=== PATIENT | male | born 1960 | race Caucasian/White ===

== ENCOUNTER → 2018-07-24 10:26 | Outpatient (CLI) | payer BC, SELFPAY ==
[2018-07-24 11:34] LABS: Microalbumin,Random Urine 60.4 mg/L (NO RANGE EST.); Microalbumin:Creatinine Ratio 36.2 mg/g CRE (<30 mg/g CRE)
[2018-07-24 12:09] LABS: ALB/GLOB Ratio 0.9 RATIO (0.9-2.4); AST(SGOT) 27 U/L (15-37); Alanine Aminotransfer ALT/SGPT 39 U/L (16-61); Albumin, Serum 3.7 g/dL (3.2-5.0); Alkaline Phosphatase 69 U/L (45-117); Anion Gap 6 (5-15); BUN 17 mg/dL (7-18); BUN/Creat Ratio 19.1 RATIO (10-20); Calcium,Total 8.8 mg/dL (8.5-10.1); Chloride 105 mmol/L (98-107); Cholesterol 120 mg/dL (200); Creatinine, Serum 0.89 mg/dL (0.70-1.30); EST Glomerular Filtration Rate 93 mL/min (>60); Est Glom Filt Rate - Afr Amer 113 mL/min (>60); Globulin 4.3 g/dL (2.2-4.2); Glucose 99 mg/dL (74-106); High Density Lipoprotein 30 mg/dL; PSA,Total - Annual Screen 0.47 ng/mL (0.00-4.00); Potassium 3.8 mmol/L (3.5-5.1); Sodium Level 140 mmol/L (136-145); Thyroid Stim Hormone (TSH) 2.39 uIU/mL (0.358-3.74); Triglycerides 124 mg/dL; Very Low Density Lipoprotein 25 mg/dL (5-40)
== END ==
PROVIDERS: Family Provider Nurse Practitioner Primary Care; PCP Nurse Practitioner Primary Care; Referring Provider Nurse Practitioner; Visit Provider Nurse Practitioner
DX: E11.9 Type 2 diabetes mellitus without complications (principal)
CPT/HCPCS: 36415; 80053; 80061; 82043; 82570; 82652; 83036; 84153; 84443; G0103

== ENCOUNTER → 2018-09-11 09:16 | Outpatient (CLI) | payer BC, SELFPAY ==
[2018-08-30 08:22] VITALS: BMI 48.4
[2018-09-11 09:43] LABS: Bacteria 0 SEEN /hpf (None Seen); Mucous, Urine 0 SEEN /hpf (<or=2+); Red Blood Cells-Urine 0 SEEN /hpf (0-5); Squamous Epithelial Cells - UA 0 SEEN /hpf (0-5); White Blood Cells 0 SEEN /hpf (0-5)
[2018-09-11 10:58] LABS: Color, Urine Yellow (Yellow); Glucose, Dipstick 1000 mg/dl (Normal); Ketone-Dipstick Negative (Negative); Leukocyte Esterase-Dipstick Negative /ul (Negative); Nitrite-Dipstick Negative (Negative); Occult Blood-Urine Negative /ul (Negative); Protein-Dipstick 15 mg/dl (Negative); Specific Gravity, Urine 1.015 (1.002-1.030); Urine Bilirubin Dipstick Negative (Negative); Urine Clarity Sl. Cloudy (Clear); Urine Urobilinogen Normal (Normal)
[2018-09-11 11:11] LABS: ALB/GLOB Ratio 0.9 RATIO (0.9-2.4); AST(SGOT) 33 U/L (15-37); Alanine Aminotransfer ALT/SGPT 44 U/L (16-61); Albumin, Serum 3.7 g/dL (3.2-5.0); Alkaline Phosphatase 70 U/L (45-117); Anion Gap 10 (5-15); BUN 14 mg/dL (7-18); Calcium,Total 8.9 mg/dL (8.5-10.1); Chloride 104 mmol/L (98-107); Creatinine, Serum 0.87 mg/dL (0.70-1.30); EST Glomerular Filtration Rate 95 mL/min (>60); Est Glom Filt Rate - Afr Amer 115 mL/min (>60); Globulin 4.3 g/dL (2.2-4.2); Glucose 166 mg/dL (74-106); Potassium 3.6 mmol/L (3.5-5.1); Sodium Level 141 mmol/L (136-145)
[2018-09-11 11:16] LABS: Microalbumin,Random Urine 20.4 mg/L (NO RANGE EST.); Microalbumin:Creatinine Ratio 20.8 mg/g CRE (<30 mg/g CRE)
[2018-09-11 11:19] LABS: Hemoglobin A1c 6.7 % (4.2-6.3)
--- OUTSIDE RECORDS SUMMARY | 2018-11-05 19:17 | XMS RPT_ITS ---
:1960 Author Organization OHIP Care Team Providers Name Role Phone BHARGAV ANNE MD Attending Unavailable BHARGAV ANNE MD Primary Care Unavailable Marilee Groves UTILIZATION MANAGEMENT RN-C Attending Unavailable Marilee Groves UTILIZATION MANAGEMENT RN-C Attending Unavailable Marilee Groves UTILIZATION MANAGEMENT RN-Wendi Referring Unavailable Karen Silveira UTILIZATION MANAGEMENT RN-C Primary Care Unavailable Marilee Groves UTILIZATION MANAGEMENT RN-Wendi Attending Unavailable Marilee Groves UTILIZATION MANAGEMENT RN-Wendi Attending Unavailable Marilee Groves UTILIZATION MANAGEMENT RN-Wendi Referring Unavailable Karen Silveira UTILIZATION MANAGEMENT RN-C Primary Care Unavailable PROBLEMS PROBLEMS DATE TYPE CONDITION / CODE ATTENDING STATUS SOURCE 09/11/2018 Unknown E11.9 - Type 2 Marilee Groves Active [facility] diabetes mellitus UTILIZATION MANAGEMENT RN-C [facility] complications / Repository E11.9(ICD-10) 10/27/2017 Admitting Encounter for OMID GUTIERREZ, Active [facility] Diagnosis screening for [facility] malignant neoplasm Repository of prostate / Z12.5(ICD-10) 10/27/2017 Admitting Type 2 diabetes OMID GUTIERREZ, Active [facility] Diagnosis mellitus without [facility] complications / Repository E11.9(ICD-10) PROCEDURES PROCEDURES No Procedure Records FoundRESULTS RESULTS URINALYSIS, COMPLETE Collected: 09/11/2018 Status: F Source: [place] 9:43 AM [facility] REPOSITORY Order Comment: How was Urine Obtained? MED ASST TO SPECIFY TYPE CODE TESTS RESULT OUT OF RANGE REFERENCE UNITS LAB L400.3000 Yellow COLOR Normal Yellow LAB L400.3050 Clear Normal CLARITY Sl. Cloudy LAB L400.3200 Normal mg/dl High GLUCOSE, UR 1000 LAB L400.3300 Negative mg/dL Normal BILIRUBIN URINE Negative LAB L400.3400 Negative mg/dl Normal KETONE UR Negative LAB L400.3465 1.002-1.030 Normal SP.GR. DIPSTX 1.015 LAB L400.3550 5.0 - 8.0 pH UR Normal 6.0 LAB L400.3600 Negative mg/dl High PROT 15 DIPSTX LAB L400.3700 Normal mg/dl Normal UROBILI Normal LAB L400.3750 Negative Normal NITRITE UR Negative LAB L400.3780 Negative /ul Normal OCCULT BLOOD-UR Negative LAB L400.3800 Negative /ul LEUK Normal ESTERASE Negative LAB L400.4050 0-5 /hpf WBC 0 Normal SEEN LAB L400.4100 0-5 /hpf 0 Normal RBC-UA SEEN LAB L400.4150 0-5 /hpf SQUAM 0 Normal EPI SEEN LAB L400.4300 None Seen /hpf 0 Normal BACTERIA SEEN LAB L400.4350 <or=2+ /hpf 0 Normal MUCUS, URINE SEEN Performed By: #### L400.0001 #### [facility] [place], [address] COMPREHENSIVE METABOLIC Collected: 09/11/2018 Status: F Source: [place] DIAZ 9:43 [facility] REPOSITORY TYPE CODE TESTS RESULT OUT OF RANGE REFERENCE UNITS LAB L501.0100 74-106 mg/dL High GLU 166 Result Comment: Fasting Glucose result greater than or equal to 126 mg/dL suggests DIABETES MELLITUS per A.D.A. criteria. Please note revised GLUCOSE reference range effective 2017. LAB L501.1000 7-18 mg/dL Normal BUN 14 LAB L501.1100 0.70-1.30 mg/dL Normal CREAT,SERUM 0.87 Result Comment: The validity of the calculated GFR AND GFRAA in patients over 70 years has not been determined. Clinical correlation is essential. LAB L501.1110 >60 mL/min Normal EST GFR 95 Result Comment: Non- GFR Calc LAB L501.1115 >60 mL/min Normal EST GFR - AA 115 Result Comment: GFR Calc LAB L501.1300 10-20 RATIO Normal BUN/CRE 16.0 LAB L501.1500 6.4-8.2 g/dL T Normal PROT 8.0 LAB L501.1800 3.2-5.0 g/dL Normal ALB 3.7 LAB L501.1950 2.2-4.2 g/dL High GLOB 4.3 LAB L501.2000 0.9-2.4 RATIO Normal A/G 0.9 LAB L501.2200 8.5-10.1 mg/dL CA Normal 8.9 LAB L501.4100 15-37 U/L Normal AST 33 LAB L501.4305 45-117 U/L Normal ALK P 70 LAB L501.4405 16-61 U/L Normal ALT 44 LAB L501.4600 0.20-1.00 mg/dL T Normal BILI 0.40 LAB L501.5300 136-145 mmol/L NA Normal 141 LAB L501.5600 3.5-5.1 mmol/L K Normal 3.6 LAB L501.5900 98-107 mmol/L CL Normal 104 LAB L501.6100 21.0-32.0 mmol/L Normal CO2 27.0 LAB L501.6200 5-15 Normal GAP 10 Performed By: #### L500.4050 #### [facility] [address] [place], [place], [id number] MICROALB:CREAT Collected: 09/11/2018 Status: F Source: [place]TE RATIO,RANDOM UR 9:43 AM [facility] REPOSITORY TYPE CODE TESTS RESULT OUT OF RANGE REFERENCE UNITS LAB L501.1200 NO RANGE EST. mg/dL Normal UR CREAT 98.20 LAB L502.0500 NO RANGE EST. mg/L Normal 20.4 MICROALBUMIN ,UR LAB L502.0600 <30 mg/g CRE mg/g CRE Normal 20.8 MALB:CREAT Performed By: #### L502.0250 #### [facility] [address] [place], [address] HEMOGLOBIN A1C Collected: 09/11/2018 Status: F Source: [place] 9:43 AM [facility] REPOSITORY TYPE CODE TESTS RESULT OUT OF RANGE REFERENCE UNITS LAB L501.9985 4.2-6.3 % High HGB A1C 6.7 Performed By: #### L501.9985 #### [facility] [address] [place], [address] ENDOCRINOLOGY VISIT Observed: 08/31/2018 Status: F Source: [place] REPORT 7:48 AM [facility] REPOSITORY [facility] [address] [place], [place] [address] OFFICE VISIT Date of Service: 08/30/18 MR#: [id number] Acct: [id number] Name: MARY SHI Rep #: [id number] : 1960 Provider: Marilee Groves NP Age/Sex: 58/M [place] [facility] [place]: Signed HPI History of present illness Mary Shi is a 58 year old male who presents for consult of diabetes type 2. Diagnosed 2005. Accompanied by his . States he currently has an A1c 6.2 Currently on farxiga trulicity nad metformin. No side effects. Pt denies difficulty with injections or self monitoring of BG. Denies any signs of infection or irritation at site of injections. Reports taking medication as directed At time of visit: -Pt denies symptoms of hypertensive emergency (CP,SOB,MCCRACKEN, or blurred vision) and hypotension(dizziness or lightheadedness) -Pt denies symptoms of hypoglycemia ( sweaty, confusion, anxiety, tremor, hunger, palpitations) and hyperglycemia ( polydipsia, polyuria) -Pt denies potential medication adverse effect. Hypoglycemia Aware of hypoglycemia: When awake Able to self treat low BG: Yes Frequent low Blood sugar: No Has supply of glucagon: Yes Diet 3 meals Occ snacks No carb counting SMBG 1-2 times daily BG 100-140 Exercise No routine exercise Limited due to lymphedema Exam Const General: comfortable, well groomed Nutritional Appearance: overweight Orientation: oriented x3 HENMT Head: normal to inspection, atraumatic Ears: hearing grossly normal bilaterally Nose: external nose normal Face and sinus: normal facial exam Mouth: oral mucosae normal, moist mucous membranes Teeth and gingiva: dentition normal Eyes General: appearance normal, both eyes and all related structures Eyelids: eyelids normal Conjunctivae: conjunctivae normal Sclera: sclerae normal Neck Neck: normal visual inspection, full ROM Neck mass: No Resp Effort AND Inspection: normal respiratory effort, able to speak in complete sentences, symmetric chest movement Auscultation: Bilateral: Clear to Auscultation Cardio Rate: regular rate Rhythm: regular rhythm Heart Sounds: S2 normal, S1 normal, no murmurs GI Inspection: normal to inspection, obesity Auscultation: normal bowel sounds Skin General: no rashes or lesions noted Wounds: no wounds Diabetic Foot Pulses: L dorsalis pedis pulse: normal, R dorsalis pedis pulse: normal Monofilament test: Left foot: normal, Right foot: normal Neuro General: oriented x3, gait normal, CN's II-XI intact bilaterally Extrem General: normal capillary refill, full ROM, normal to inspection, edema Psych Appearance: grossly normal, well kempt Mental Status: mental status grossly normal Mood: congruent mood Affect: normal affect Speech and Movement: speech and movement normal Attitude: cooperative Thought Process: normal Thought Content: normal Judgment: judgment good Type: type 2 Weight and fatigue symptoms: Reports weight gain Cardiopulmonary symptoms: Denies chest pain at rest or dizziness GI symptoms: Denies diarrhea, nausea/dyspepsia, vomiting or increased hunger Other symptoms: Denies change in vision or depression Pertinent visit history: Denies recent visit to ER, recent hospital admission or recent 911 calls Self monitoring: Yes Percentage of fasting blood glucose within goal: most of the time Dietary compliance: Diabetes: good Diabetes education in past year: Yes Glucose testing: demonstrates correct use of meter Sick day education - understands ketone testing: Yes Physical activity: regular Intake Vital Signs11/19/18 Height 5 ft 7 in 08/30/18 Weight: 309 lb 08/30/18 Body Mass Index (BMI) 48.4 08/30/18 Blood Pressure 144/78 H Intake Visit Reasons: 3 MO FU DIABETES MELLITUS TYPE 2 Home And Family Living Professor Required: No Accompanied by: Self Is patient in pain?: No Allergies seasonal Allergy (Mild, Uncoded 06/03/18 08:29) runny nose Medications aspirin 325 mg tablet 325 mg PO DAILY 06/03/18 [History Confirmed 08/30/18] diltiazem CD 120 mg capsule,extended release 24 hr 120 mg PO DAILY 06/03/18 [History Confirmed 08/30/18] dulaglutide 0.75 mg/0.5 mL subcutaneous pen injector 0.75 mg SC QWEEK #6 ml 06/03/18 [Rx Confirmed 08/30/18] empagliflozin 25 mg tablet 25 mg PO DAILY #90 tab 06/03/18 [Rx Confirmed 08/30/18] losartan 50 mg-hydrochlorothiazide 12.5 mg tablet 1 tab PO DAILY 06/03/18 [History Confirmed 08/30/18] metformin ER 750 mg tablet,extended release 24 hr See Rx Instructions PO .COMPLEX #270 tab 06/03/18 [Rx Confirmed 08/30/18] montelukast 10 mg tablet 10 mg PO QPM 06/03/18 [History Confirmed 08/30/18] dapagliflozin 10 mg tablet 10 mg PO DAILY #90 tab 06/10/18 [Rx Confirmed 08/30/18] PFSH Medical History Type 2 diabetes mellitus without complications (Acute) Family History Other Diabetes Heart disease Hypertension Social History Smoking Status: Never smoker ROS Const Constitutional: No chills, fever(s) or night sweats Eyes Eyes: No change in vision ENT ENT: No ear pain, ear discharge, nasal congestion or nosebleed/epistaxis Resp Respiratory: No cough or shortness of breath Cardio Cardiology: No chest pain at rest, chest pain with exertion or generalized swelling Gastro GI: No diarrhea, nausea/dyspepsia or vomiting Genitourinary Male: No difficulty urinating, urinary urgency or painful urination Musc Musculoskeletal: No joint pain, back pain, muscle cramps, muscle weakness, numbness or tingling Skin Skin: No rash or lesions Neuro Neurology: No dizziness, numbness or tingling Psych Psychiatric: No anxiety, No depression Endo Endocrine: No increased thirst/drinking or increased hunger Aller/Imm Allergy/Immunologic: Positive for seasonal allergy symptoms Emory/Lymp Hematologic/Lymphatic: No easy bleeding or easy bruising Assessment AND Plan Problems 1. Controlled type 2 diabetes mellitus without complication, without long-term current use of insulin E11.9 2. Essential hypertension I10 Plan HTN: Has PCP appointment next wek. As he continues to report issues with lymphedema, I suggest he discuss whether or not he could have increase in his HCTZ which would help with BP as well as edema. Discussed importance of lower sodium intake and also leg elevation. Is eating more soups which are higher sodium content. Diabetes: BG remain in good range but did have 36 level microalbumin. Will recheck with U/a to be sure it is a true test result. Need BP to be controlled. Reviewed labs. Chol in range. Vit D in range. On daily ASA On ARB Orders Orders: Plan Detail Additional Comments 1. Please schedule follow up in 3 months. 2. Lab work one week before appointment. 3. Discussed importance of regular exercise and recommend starting or continuing a regular exercise program for good health. 4. The patient was encouraged to lose weight for good health 5. The importance of monitoring blood sugar regularly was reviewed. 6. The importance of monitoring the HBA1c level regularly was reviewed. 7. The importance of prper foot care and regularly checking feet to prevent sores and loss of limbs was reviewed. 8. The importance of keeping BP at or below 130/80 to prevent stroke, heart attacks, kidney failure, blindness was reviewed. Spent approximately 30 minutes with patient with over 50% of time spent in discussion and counseling regarding medication adjustment, symptoms and treatment of hypoglycemia, diet adherence, and checking BG before driving. Coding Level of Care Code Off vis,est,level 4 Diagnoses Controlled type 2 diabetes mellitus without complication, without long-term current use of insulin E11.9 Diabetes mellitus exterminator insulin use: without chcf use Essential hypertension I10 08/31/18 0748 <Electronically signed by Marilee POLANCO> Date Marilee Groves UTILIZATION MANAGEMENT RN-C Bangigner Signature: Date (if applicable) CC: MICROALB:CREAT Collected: 07/24/2018 Status: F Source: EVETTE RATIO,RANDOM UR 10:34 AM [facility] REPOSITORY TYPE CODE TESTS RESULT OUT OF RANGE REFERENCE UNITS LAB L501.1200 NO RANGE EST. mg/dL Normal UR CREAT 167.00 LAB L502.0500 NO RANGE EST. mg/L Normal 60.4 MICROALBUMIN ,UR LAB L502.0600 <30 mg/g CRE mg/g CRE High 36.2 MALB:CREAT Performed By: #### L502.0250 #### [facility] [address] [place], [place], [address] HEMOGLOBIN A1C Collected: 07/24/2018 Status: F Source: [place] 10:34 AM [facility] REPOSITORY TYPE CODE TESTS RESULT OUT OF RANGE REFERENCE UNITS LAB L501.9985 4.2-6.3 % Normal HGB A1C 6.0 Performed By: #### L501.9985, L500.4050, L500.4100, L501.9520, L501.9910 #### [facility] [address] [place], [address] COMPREHENSIVE METABOLIC Collected: 07/24/2018 Status: F Source: [place] PROFIL 10:34 AM [facility] REPOSITORY TYPE CODE TESTS RESULT OUT OF RANGE REFERENCE UNITS LAB L501.0100 74-106 mg/dL Normal GLU 99 Result Comment: Please note revised GLUCOSE reference range effective 2017. LAB L501.1000 7-18 mg/dL Normal BUN 17 LAB L501.1100 0.70-1.30 mg/dL Normal CREAT,SERUM 0.89 Result Comment: The validity of the calculated GFR AND GFRAA in patients over 70 years has not been determined. Clinical correlation is essential. LAB L501.1110 >60 mL/min Normal EST GFR 93 Result Comment: Non- GFR Calc LAB L501.1115 >60 mL/min Normal EST GFR - AA 113 Result Comment: GFR Calc LAB L501.1300 10-20 RATIO Normal BUN/CRE 19.1 LAB L501.1500 6.4-8.2 g/dL T Normal PROT 8.0 LAB L501.1800 3.2-5.0 g/dL Normal ALB 3.7 LAB L501.1950 2.2-4.2 g/dL High GLOB 4.3 LAB L501.2000 0.9-2.4 RATIO Normal A/G 0.9 LAB L501.2200 8.5-10.1 mg/dL CA Normal 8.8 LAB L501.4100 15-37 U/L Normal AST 27 LAB L501.4305 45-117 U/L Normal ALK P 69 LAB L501.4405 16-61 U/L Normal ALT 39 LAB L501.4600 0.20-1.00 mg/dL T Normal BILI 0.40 LAB L501.5300 136-145 mmol/L NA Normal 140 LAB L501.5600 3.5-5.1 mmol/L K Normal 3.8 LAB L501.5900 98-107 mmol/L CL Normal 105 LAB L501.6100 21.0-32.0 mmol/L Normal CO2 29.0 LAB L501.6200 5-15 Normal GAP 6 Performed By: #### L501.9985, L500.4050, L500.4100, L501.9520, L501.9910 #### [facility] [address] [place], [place], [address] LIPID PROFILE Collected: 07/24/2018 Status: F Source: [place] 10:34 AM [facility] REPOSITORY TYPE CODE TESTS RESULT OUT OF RANGE REFERENCE UNITS LAB L501.4900 200 mg/dL Normal CHOL 120 Result Comment: <200 mg/dL Desirable 200-240 mg/dL Borderline >240 mg/dL High Risk LAB L501.5000 mg/dL Normal TRIG 124 Result Comment: The drugs N-Acetylcysteine and Metamizole may falsely depress this assay. Serum Triglycerides Reference Interval Normal <150 mg/dL Borderline high 150 - 199 mg/dL High 200 - 499 mg/dL Very High > or = 500 mg/dL LAB L501.6400 mg/dL Low HDL 30 Result Comment: The drugs N-Acetylcysteine and Metamizole may falsely depress this assay. Reference Range HDL <40 mg/dL Low HDL Cholesterol HDL >or= 60 mg/dL High HDL Cholesterol LAB L501.6500 0-130 mg/dL Normal LDL 65 LAB L501.6600 5-40 mg/dL Normal VLDL 25 Performed By: #### L501.9985, L500.4050, L500.4100, L501.9520, L501.9910 #### [facility] [address] [place], [address] THYROID STIM HORMONE Collected: 07/24/2018 Status: F Source: [place] (TSH) 10:34 AM [facility] REPOSITORY TYPE CODE TESTS RESULT OUT OF RANGE REFERENCE UNITS LAB L501.9520 0.358-3.74 uIU/mL Normal TSH 2.39 Performed By: #### L501.9985, L500.4050, L500.4100, L501.9520, L501.9910 #### [facility] [address] [place], [place], [id number] PSA,TOTAL - ANNUAL Collected: 07/24/2018 Status: F Source: [place] SCREEN 10:34 AM [facility] REPOSITORY TYPE CODE TESTS RESULT OUT OF RANGE REFERENCE UNITS LAB L501.9910 0.00-4.00 ng/mL Normal PSA,TOT 0.47 SCREEN Result Comment: This test was performed using the TPSA assay method for the [employer] chemistry system. Values obtained with different assay methods cannot be used interchangably. When changing PSA assays in the course of monitoring a patient, additional sequential testing should be carried out to confirm baseline values. Performed By: #### L501.9985, L500.4050, L500.4100, L501.9520, L501.9910 #### [facility] [address] [place], [address] VITAMIN D 1,25-DIHYDROXY Collected: 07/24/2018 Status: F Source: [place] 10:34 AM [facility] REPOSITORY TYPE CODE TESTS RESULT OUT OF RANGE REFERENCE UNITS LAB L3300.0960 19.9-79.3 pg/mL Normal VITD 1,25 35.0 [address]111 Result Comment: Performed at: - [facility] [id number] Grain Scooper: Francis Tolentino MD, Phone: [phone] Performed By: #### L3300.0960 #### [facility] (refer to report for specific site) refer to report for address and phone number ENDOCRINOLOGY VISIT Observed: 06/06/2018 Status: F Source: [place] REPORT 1:05 PM [facility] REPOSITORY [facility] [address] [place] [address] OFFICE VISIT Date of Service: 06/03/18 MR#: [id number] Acct: [id number] Name: MARY SHI Rep #: [id number] : 1960 Provider: Marilee Groves NP Age/Sex: 58/M [place] [facility] [place]: Signed HPI History of present illness Mary Shi is a 58 year old male who presents for consult of diabetes type 2. Diagnosed 2005. Accompanied by his . States he currently has an A1c 6.2 Currenlty onJardiance, trulicity nad metformin. No side effects. Pt denies difficulty with injections or self monitoring of BG. Denies any signs of infection or irritation at site of injections. Reports taking medication as directed At time of visit: -Pt denies symptoms of hypertensive emergency (CP,SOB,MCCRACKEN, or blurred vision) and hypotension(dizziness or lightheadedness) -Pt denies symptoms of hypoglycemia ( sweaty, confusion, anxiety, tremor, hunger, palpitations) and hyperglycemia ( polydipsia, polyuria) -Pt denies potential medication adverse effect. Hypoglycemia Aware of hypoglycemia: When awake Able to self treat low BG: Yes Frequent low Blood sugar: No Has supply of glucagon: Yes Diet 3 meals Occ snacks No carb counting SMBG 1-2 times daily BG 100-140 Exercise No routine exercise Limited due to lymphedema Type: type 2 Cardiopulmonary symptoms: Denies chest pain at rest or dizziness GI symptoms: Denies constipation, diarrhea, vomiting or increased hunger Skin and extremity symptoms: Denies tingling/numbness/burning Other symptoms: Denies change in vision Pertinent visit history: Denies recent visit to ER or recent DKA Self monitoring: Yes Percentage of fasting blood glucose within goal: most of the time Dietary compliance: Diabetes: other Diabetes education in past year: No Glucose testing: demonstrates correct use of meter, understands testing schedule Sick day education - understands ketone testing: Yes Physical activity: regular Exam Const General: comfortable, well groomed Nutritional Appearance: overweight Orientation: oriented x3 HENMT Head: normal to inspection, atraumatic Ears: hearing grossly normal bilaterally Nose: external nose normal Face and sinus: normal facial exam Mouth: oral mucosae normal, moist mucous membranes Teeth and gingiva: dentition normal Eyes General: appearance normal, both eyes and all related structures Eyelids: eyelids normal Conjunctivae: conjunctivae normal Sclera: sclerae normal Neck Neck: normal visual inspection, full ROM Neck mass: No Resp Effort AND Inspection: normal respiratory effort, able to speak in complete sentences, symmetric chest movement Auscultation: Bilateral: Clear to Auscultation Cardio Rate: regular rate Rhythm: regular rhythm Heart Sounds: S2 normal, S1 normal, no murmurs GI Inspection: normal to inspection, obesity Auscultation: normal bowel sounds Skin General: no rashes or lesions noted Wounds: no wounds Diabetic Foot Pulses: L dorsalis pedis pulse: normal, R dorsalis pedis pulse: normal Monofilament test: Left foot: normal, Right foot: normal Neuro General: oriented x3, gait normal, CN's II-XI intact bilaterally Extrem General: normal capillary refill, full ROM, normal to inspection, edema Psych Appearance: grossly normal, well kempt Mental Status: mental status grossly normal Mood: congruent mood Affect: normal affect Speech and Movement: speech and movement normal Attitude: cooperative Thought Process: normal Thought Content: normal Judgment: judgment good Intake Vital Signs06/03/18 Height 5 ft 7 in 06/03/18 Weight: 304 lb 06/03/18 Body Mass Index (BMI) 47.6 06/03/18 Blood Pressure 162/81 06/03/18 Blood Pressure Location Rt brachial Intake Visit Reasons: Diabetes Mellitus Type 2 Home And Family Living Professor Required: No Accompanied by: Is patient in pain?: No Allergies seasonal Allergy (Mild, Uncoded 06/03/18 08:29) runny nose Medications aspirin 325 mg tablet 325 mg PO DAILY 06/03/18 [History Confirmed 06/03/18] diltiazem CD 120 mg capsule,extended release 24 hr 120 mg PO DAILY 06/03/18 [History Confirmed 06/03/18] dulaglutide 0.75 mg/0.5 mL subcutaneous pen injector 0.75 mg SC QWEEK #6 ml 06/03/18 [Rx Confirmed 06/03/18] empagliflozin 25 mg tablet 25 mg PO DAILY #90 tab 06/03/18 [Rx Confirmed 06/03/18] losartan 50 mg-hydrochlorothiazide 12.5 mg tablet 1 tab PO DAILY 06/03/18 [History Confirmed 06/03/18] metformin ER 750 mg tablet,extended release 24 hr See Label Instructions PO .COMPLEX #270 tab 06/03/18 [Rx Confirmed 06/03/18] montelukast 10 mg tablet 10 mg PO QPM 06/03/18 [History Confirmed 06/03/18] PFSH Medical History Type 2 diabetes mellitus without complications (Acute) Family History Other Diabetes Heart disease Hypertension ROS Const Constitutional: No chills, body ache, fever(s) or night sweats Eyes Eyes: No change in vision ENT ENT: No ear pain, ear discharge or nosebleed/epistaxis Resp Respiratory: No shortness of breath Cardio Cardiology: No chest pain with exertion, chest pain at rest or generalized swelling Gastro GI: No constipation, diarrhea, vomiting or abdominal pain Genitourinary Male: No urinary incontinence, painful urination or difficulty urinating Skin Skin: No sores, skin ulcer, wounds, lesions or rash Neuro Neurology: No dizziness or fainting Endo Endocrine: No increased hunger, increased thirst/drinking or heat intolerance Aller/Imm Allergy/Immunologic: Positive for seasonal allergy symptoms Emory/Lymp Hematologic/Lymphatic: No easy bruising Assessment AND Plan Problems 1. diabetes type 2 controlled without complication Plan Reviewed pathophysiology of diabetes. Reviewed medication administration, side effects. Reviewed diet, exercise, and sglucose monitoring. Reviewed self anagement of diabetes REviewed skin care. Pateint currently doing very well according to A1c of 6.2 Eye exam up to date without retinopathy BP elevated but patient and admit patient has white coat syndrom On ARB Chol in normal range without statin. Father Heart disease but smoker. Orders Orders: Medications New: Plan Detail Additional Comments 1. Please schedule follow up in 3 months. 2. Lab work one week before appointment. 3. Discussed importance of regular exercise and recommend starting or continuing a regular exercise program for good health. 4. The patient was encouraged to lose weight for good health 5. The importance of monitoring blood sugar regularly was reviewed. 6. The importance of monitoring the HBA1c level regularly was reviewed. 7. The importance of prper foot care and regularly checking feet to prevent sores and loss of limbs was reviewed. 8. The importance of keeping BP at or below 130/80 to prevent stroke, heart attacks, kidney failure, blindness was reviewed. Spent approximately 60 minutes with patient with over 50% of time spent in discussion and counseling regarding medication adjustment, symptoms and treatment of hypoglycemia, diet adherence, and checking BG before driving. Coding Level of Care Code Off vis,new,level 4 Diagnoses diabetes type 2 controlled without complication Depression Screen PHQ-2/9 If score is 2 or greater, continue Source: Developed by Drs. Bhargav Lu, Sumaya Lane, Jorge Bliss and colleagues, with an educational taylor from [employer]. Scoring: Total Score Depression Severity Action 1-4 Minimal depression No action needed 5-9 Mild depression Repeat PHQ-9 at follow up 10-14 Moderate depression Make tx plan,consider counseling, fup, prescription 06/06/18 1305 <Electronically signed by Marilee POLANCO> Date Marilee POLANCO Cosigner Signature: Date (if applicable) CC: HGMP Collected: 10/27/2017 Status: F Source: [facility] 7:49 AM [facility] REPOSITORY TYPE CODE TESTS RESULT OUT OF REFERENCE UNITS RANGE LAB WBC(LOINC) 4.60-10.80 10 3/mcL WBC 8.30 LAB RBCCT(LOINC 4.04-6.13 10 6/mcL ) RBC 5.06 LAB HGB(LOINC) 14.0-18.0 G/dL Hgb 15.1 LAB HCT(LOINC) 42.0-52.0 % Hct 45.1 LAB MCV(LOINC) 80.0-94.0 fL MCV 89.2 LAB MCH(LOINC) 27.0-31.2 pg MCH 29.8 LAB MCHC(LOINC) 31.8-35.4 G/dL MCHC 33.4 LAB RDW(LOINC) 11.5-14.5 % RDW 14.2 LAB PLT(LOINC) 130-400 10 3/mcL Platelet 253 LAB MPV(LOINC) 7.4-10.4 fL MPV 7.9 Performed By: #### PSA, GFR, LIPID, HGMP, CMP #### [facility] [address], [place] [address] LIPID Collected: 10/27/2017 Status: F Source: [facility] 7:49 AM [facility] REPOSITORY TYPE CODE TESTS RESULT OUT OF REFERENCE UNITS RANGE LAB CHOL(LOINC 131-200 mg/dL ) Low Cholesterol 119 Result Comment: Cholesterol Reference Interval: Less than 200 Desirable 200-239 Borderline high risk 240 and above High risk LAB TRIG(LOINC) 40-150 mg/dL Triglycerides 118 Result Comment: Triglyceride Reference Interval: Less than 150 Normal 150-199 Borderline high risk 200-499 High risk 500 or higher Very high risk LAB HD(LOINC) 35-90 mg/dL HDL Low Cholesterol 33 Result Comment: HDL Reference Interval: Less than 40 Low - high risk 60 or above Optimal/lowers risk LAB LDL(LOINC) 0-130 mg/dL LDL Cholesterol 62 Result Comment: LDL is a calculated result and requires a 12-hr fast. LDL Reference Interval: Less than 100 Optimal 100-129 Near or above optimal 130-159 Borderline high risk 160-189 High risk 190 and above Very high risk Performed By: #### PSA, GFR, LIPID, HGMP, CMP #### [facility] [address], [place] [address] .GFR Collected: 10/27/2017 Status: F Source: [place] 7:49 AM [facility] REPOSITORY TYPE CODE TESTS RESULT OUT OF REFERENCE UNITS RANGE LAB GFRAA(LOINC ml/min/1.73 ) sqm GFR 121 [place] Result Comment: GFR Population mean for , Non- Americans Ages 20-29 = 116 mL/min/1.73 sq.m. Ages 30-39 = 107 mL/min/1.73 sq.m. Ages 40-49 = 99 mL/min/1.73 sq.m. Ages 50-59 = 93 mL/min/1.73 sq.m. Ages 60-69 = 85 mL/min/1.73 sq.m. Ages 70+ = 75 mL/min/1.73 sq.m. Chronic Kidney Disease: Less than 60 mL/min/1.73 square meters End Stage Renal Disease: Less than 15 mL/min/1.73 square meters LAB GFRNO(LOINC) ml/min/1.73sqm GFR Non- >60 Result Comment: GFR Population mean for , Non- Americans Ages 20-29 = 116 mL/min/1.73 sq.m. Ages 30-39 = 107 mL/min/1.73 sq.m. Ages 40-49 = 99 mL/min/1.73 sq.m. Ages 50-59 = 93 mL/min/1.73 sq.m. Ages 60-69 = 85 mL/min/1.73 sq.m. Ages 70+ = 75 mL/min/1.73 sq.m. Chronic Kidney Disease: Less than 60 mL/min/1.73 square meters End Stage Renal Disease: Less than 15 mL/min/1.73 square meters Performed By: #### PSA, GFR, LIPID, HGMP, CMP #### [address] [address] CMP Collected: 10/27/2017 Status: F Source: [facility] 7:49 AM [facility] REPOSITORY TYPE CODE TESTS RESULT OUT OF REFERENCE UNITS RANGE LAB 1547-9 70-105 mg/dL GLUCOSE High 119 LAB NA(LOINC) 136-146 mEq/L Sodium Level 141 LAB K(LOINC) 3.5-5.1 mEq/L Potassium Level 4.3 LAB CL(LOINC) 98-107 mEq/L Chloride 103 LAB CO2(LOINC) 22-29 mEq/L CO2 27 LAB EBAL(LOINC mEq/L ) Electrolyte Balance 11.0 LAB BUN(LOINC) 7.0-18.0 mg/dL BUN 12.5 LAB CRE(LOINC) 0.6-1.2 mg/dL Creatinine Lvl (s) 0.8 LAB BC(LOINC) 7-27 ratio BUN/Creatinine 16 Ratio LAB CA(LOINC) 8.4-10.2 mg/dL Calcium Lvl 9.2 LAB PROT(LOINC 6.0-8.3 G/dL ) Total Protein 7.3 LAB ALB(LOINC) 3.5-5.0 G/dL Albumin Level 4.3 LAB GLB(LOINC) G/dL Globulin 3.0 LAB AG(LOINC) 1.1-2.5 ratio A/G Ratio 1.4 LAB BILT(LOINC 0.2-1.0 mg/dL ) Bili Total 0.5 LAB AP(LOINC) 40-135 IU/L Alk Phos 71 LAB AST(LOINC) 10-40 IU/L AST/SGOT 24 LAB ALT(LOINC) 10-35 IU/L ALT/SGPT 26 Performed By: #### PSA, GFR, LIPID, HGMP, CMP #### [address] [address] PSA Collected: 10/27/2017 Status: F Source: [facility] 7:49 AM [facility] REPOSITORY TYPE CODE TESTS RESULT OUT OF REFERENCE UNITS RANGE LAB PSA(LOINC) 0.00-4.00 ng/mL Prostate 0.37 Specific Antigen Performed By: #### PSA, GFR, LIPID, HGMP, CMP #### [address] [address] ALLERGIES ALLERGIES DATE TYPE / CODE NAME / CODE REACTION SEVERITY SOURCE 06/03/2018 Miscellaneous seasonal Runny nose [place] [facility]/[id number]([facility] Hospital Repository ENCOUNTERS ENCOUNTERS ADMIT/DISCHARGE ACCOUNT NUMBER ADMITTING ENCOUNTER LOCATION SOURCE CLASS 09/11/2018 [id number] [facility] Repository 08/30/2018/08/30/20 [id number] Ambulatory BMSBuilding: [place] [facility] BMS.[facility] Repository 07/24/2018 [id number] [facility] ding:LAB Repository 06/03/2018/06/03/20 [id number] Ambulatory BMSBuilding: [place] 18 BMS.[facility] Repository 10/27/2017/10/31/19 [id number] [address] [facility] Repository PAYERS PAYERS ENCOUNTER GUARANTOR PAYER SUBSCRIBER SOURCE 09/11/2018 MARY Iglesias Primary MARY Alas [id number] RUDDY Insurance:ANTHEMPolic [place]USSERDOB: [place] Number: [id number] Hospital [address]Lvz: 567 [id number] Repository 3357 () Date:[id number] [address] [place] [address]KX: 09/11/2018 Secondary NOT GIVENUNK [place] Insurance:SELF PAY [facility] Number: Effective Repository Date:2018-09-11 08/30/2018 MARY Iglesias Primary MARY [id number] RUDDY Insurance:ANTHEMPolic [place]USSERDOB: [place] Number: [id number] Hospital [id number]: 567 [id number] Repository 4961 () Date:[id number] [address] [place] [address] 24695LL: 08/30/2018 Secondary NOT GIVENUNK [place] Insurance:SELF PAY [facility] Number: Effective Repository Date:2018-08-30 07/24/2018 MARY Iglesias Primary MARY Alas [id number] RUDDY Insurance:ANTHEMPolic [place]USSERDOB: [place] Number: [id number] Hospital [id number]: 567 [id number] Repository [phone] () Date:[id number] [id number] [place] [address]KY: 07/24/2018 Secondary NOT GIVENUNK [place] Insurance:SELF PAY [facility] Number: Effective Repository Date:2018-07-24 06/03/2018 MARY Iglesias Primary MARY Alas [id number] RUDDY Insurance:ANTHEMPolic [place]USSERDOB: [place] Number: [id number] Hospital [id number]: 567 [id number] Repository [phone] () Date:[id number] [id number] [place] [address] 12[address]TB: 06/03/2018 Secondary NOT GIVENUNK [place] Insurance:SELF PAY [facility] Number: Effective Repository Date:2018-06-03 10/27/2017 MARY Iglesias Primary [facility] [id number] [facility] [id number] Number: [address] Repository [facility], [id number] [facility] [address]Orx: Date:2017-10-27 [id number]: [phone] ()Tel: [phone] Name:[id number] [place] () () [facility] [phone] (WP) [place], [place] [address]LR:
== END ==
PROVIDERS: Family Provider Nurse Practitioner Primary Care; PCP Nurse Practitioner Primary Care; Referring Provider Nurse Practitioner; Visit Provider Nurse Practitioner
DX: E11.9 Type 2 diabetes mellitus without complications (principal)
CPT/HCPCS: 36415; 80053; 81001; 82043; 82570; 83036

== ENCOUNTER → 2020-01-14 07:15 | Outpatient (CLI) | payer BC, SELFPAY ==
[2018-11-30 08:13] VITALS: BMI 48.4
[2020-01-14 08:06] LABS: Hemoglobin A1c 6.7 % (4.2-6.3)
[2020-01-14 08:24] LABS: ALB/GLOB Ratio 0.9 RATIO (0.9-2.4); AST(SGOT) 32 U/L (15-37); Alanine Aminotransfer ALT/SGPT 44 U/L (16-61); Albumin, Serum 3.7 g/dL (3.2-5.0); Alkaline Phosphatase 69 U/L (45-117); Anion Gap 5 (5-15); BUN 15 mg/dL (7-18); BUN/Creat Ratio 16.1 RATIO (10-20); Calcium,Total 9.6 mg/dL (8.5-10.1); Chloride 107 mmol/L (98-107); Cholesterol 131 mg/dL (200); Creatinine, Serum 0.93 mg/dL (0.70-1.30); EST Glomerular Filtration Rate 88 mL/min (>60); Est Glom Filt Rate - Afr Amer 106 mL/min (>60); Globulin 4.2 g/dL (2.2-4.2); Glucose 131 mg/dL (74-106); High Density Lipoprotein 31 mg/dL; Potassium 4.2 mmol/L (3.5-5.1); Protein, Total 7.9 g/dL (6.4-8.2); Sodium Level 140 mmol/L (136-145); Thyroid Stim Hormone (TSH) 2.85 uIU/mL (0.358-3.74); Triglycerides 210 mg/dL; Very Low Density Lipoprotein 42 mg/dL (5-40)
[2020-01-16 08:25] LABS: Vitamin D,25 Hydroxy 38.4 ng/mL
== END ==
PROVIDERS: PCP Nurse Practitioner Primary Care; Referring Provider Nurse Practitioner; Visit Provider Nurse Practitioner
DX: Z00.00 Encounter for general adult medical examination without abnormal findings (principal); E11.9 Type 2 diabetes mellitus without complications
CPT/HCPCS: 36415; 80053; 80061; 82306; 83036; 84443

== ENCOUNTER 2022-01-13 09:39 | Outpatient (CLI) | payer BC, SELFPAY ==
[2022-01-13 12:29] LABS: Microalbumin,Random Urine 26.8 mg/L (NO RANGE EST.); Microalbumin:Creatinine Ratio 33.6 mg/g CRE (<30 mg/g CRE)
[2022-01-13 12:30] LABS: ALB/GLOB Ratio 0.7 RATIO (0.9-2.4); AST(SGOT) 18 U/L (15-37); Alanine Aminotransfer ALT/SGPT 41 U/L (16-61); Albumin, Serum 3.4 g/dL (3.2-5.0); Alkaline Phosphatase 67 U/L (45-117); Anion Gap 9 (5-15); BUN 14 mg/dL (7-18); BUN/Creat Ratio 13.5 RATIO (10-20); Calcium,Total 9.3 mg/dL (8.5-10.1); Chloride 103 mmol/L (98-107); Cholesterol 115 mg/dL (200); Creatinine, Serum 1.04 mg/dL (0.70-1.30); EST Glomerular Filtration Rate 77 mL/min (>60); Est Glom Filt Rate - Afr Amer 93 mL/min (>60); Globulin 4.9 g/dL (2.2-4.2); Glucose 217 mg/dL (74-106); High Density Lipoprotein 34 mg/dL; PSA,Total - Annual Screen 0.37 ng/mL (0.00-4.00); Potassium 3.9 mmol/L (3.5-5.1); Protein, Total 8.3 g/dL (6.4-8.2); Sodium Level 139 mmol/L (136-145); Thyroid Stim Hormone (TSH) 1.27 uIU/mL (0.358-3.74); Triglycerides 209 mg/dL; Very Low Density Lipoprotein 42 mg/dL (5-40)
== END 2022-01-13 23:59 | disposition home or self-care (01) ==
LOC: BIMLAB 09:40
PROVIDERS: Internal Medicine Endocrinology, Diabetes & Metabolism; PCP Nurse Practitioner Primary Care; Referring Provider Nurse Practitioner Primary Care; Visit Provider Nurse Practitioner Primary Care
DX: Z12.5 Encounter for screening for malignant neoplasm of prostate (principal); E11.9 Type 2 diabetes mellitus without complications; I10 Essential (primary) hypertension
CPT/HCPCS: 80053; 80061; 82043; 82570; 84153; 84443; G0103

== ENCOUNTER → 2023-01-16 | Outpatient (CLI) | payer BC, SELFPAY ==
[2023-01-16 10:08] LABS: Microalbumin,Random Urine 59.2 mg/L (NO RANGE EST.); Microalbumin:Creatinine Ratio 61.6 mg/g CRE (<30 mg/g CRE)
[2023-01-16 10:09] LABS: PSA,Total - Annual Screen 0.52 ng/mL (0.00-4.00)
[2023-01-16 10:11] LABS: Vitamin B12 426 pg/mL (211-911)
[2023-01-16 10:18] LABS: ALB/GLOB Ratio 0.9 RATIO (0.9-2.4); AST(SGOT) 28 U/L (15-37); Alanine Aminotransfer ALT/SGPT 42 U/L (16-61); Albumin, Serum 3.6 g/dL (3.2-5.0); Alkaline Phosphatase 90 U/L (45-117); Anion Gap 6 (5-15); BUN 18 mg/dL (7-18); BUN/Creat Ratio 18.8 RATIO (10-20); Calcium,Total 9.5 mg/dL (8.5-10.1); Chloride 105 mmol/L (98-107); Cholesterol 133 mg/dL (200); Creatinine, Serum 0.96 mg/dL (0.70-1.30); EST Glomerular Filtration Rate 84 mL/min (>60); Est Glom Filt Rate - Afr Amer 102 mL/min (>60); Globulin 4.2 g/dL (2.2-4.2); Glucose 147 mg/dL (74-106); High Density Lipoprotein 35 mg/dL; Potassium 4.4 mmol/L (3.5-5.1); Protein, Total 7.8 g/dL (6.4-8.2); Sodium Level 140 mmol/L (136-145); Thyroid Stim Hormone (TSH) 1.45 uIU/mL (0.358-3.74); Triglycerides 206 mg/dL; Very Low Density Lipoprotein 41 mg/dL (5-40)
== END | disposition home or self-care (01) ==
LOC: LAB 09:18
PROVIDERS: PCP Nurse Practitioner Primary Care; Visit Provider Internal Medicine Endocrinology, Diabetes & Metabolism
DX: Z12.5 Encounter for screening for malignant neoplasm of prostate (principal); E11.9 Type 2 diabetes mellitus without complications; Z79.4 Long term (current) use of insulin; I10 Essential (primary) hypertension
CPT/HCPCS: 36415; 80053; 80061; 82043; 82570; 82607; 84153; 84443; G0103

== ENCOUNTER → 2024-02-20 | Outpatient (CLI) | payer BC, SELFPAY ==
[2024-02-20 09:42] LABS: Hematocrit 45.7 % (40-54); Hemoglobin 15.2 g/dL (13.0-16.5); Mean Corp Hgb Conc 33.3 g/dL (32-36); Mean Corpuscular Hgb 30.9 pg (27.0-32.0); Mean Corpuscular Volume 92.9 fL (80-94); Mean Platelet Vol. 9.1 fl (6.2-12.0); Platelet Count 269 K/mm3 (150-450); RBC Distribution Width CV 13.3 % (11.6-14.6); Red Blood Count 4.92 M/mm3 (4.6-6.2); White Blood Count 6.4 K/mm3 (4.4-11.0)
[2024-02-20 10:15] LABS: ALB/GLOB Ratio 0.9 RATIO (0.9-2.4); AST(SGOT) 26 U/L (15-37); Alanine Aminotransfer ALT/SGPT 34 U/L (16-61); Albumin, Serum 3.6 g/dL (3.2-5.0); Alkaline Phosphatase 64 U/L (45-117); Anion Gap 5 (5-15); BUN 13 mg/dL (7-18); BUN/Creat Ratio 14.3 RATIO (10-20); Chloride 104 mmol/L (98-107); Cholesterol 115 mg/dL (200); Creatinine, Serum 0.91 mg/dL (0.70-1.30); EST Glomerular Filtration Rate 89 mL/min (>60); Est Glom Filt Rate - Afr Amer 108 mL/min (>60); Globulin 3.9 g/dL (2.2-4.2); Glucose 132 mg/dL (74-106); High Density Lipoprotein 35 mg/dL; PSA,Total - Annual Screen 0.56 ng/mL (0.00-4.00); Potassium 3.8 mmol/L (3.5-5.1); Protein, Total 7.5 g/dL (6.4-8.2); Sodium Level 138 mmol/L (136-145); Triglycerides 198 mg/dL; Very Low Density Lipoprotein 40 mg/dL (5-40)
== END | disposition home or self-care (01) ==
PROVIDERS: PCP Nurse Practitioner Primary Care; Referring Provider Nurse Practitioner Primary Care; Visit Provider Nurse Practitioner Primary Care
DX: E11.9 Type 2 diabetes mellitus without complications (principal); I10 Essential (primary) hypertension; Z12.5 Encounter for screening for malignant neoplasm of prostate
CPT/HCPCS: 36415; 80053; 80061; 84153; 85027; G0103

== ENCOUNTER 2025-03-11 09:42 | Outpatient (CLI) | payer BC, SELFPAY ==
[2025-03-11 11:02] LABS: PSA,Total - Annual Screen 0.55 ng/mL (0.02-4.00)
[2025-03-11 11:16] LABS: ALB/GLOB Ratio 1.3 RATIO (0.9-2.4); AST(SGOT) 25 U/L (<=37); Alanine Aminotransfer ALT/SGPT 24 U/L (<=46); Albumin, Serum 4.1 g/dL (3.4-4.8); Alkaline Phosphatase 73 U/L (40-129); Anion Gap 12 (5-15); BUN 17 mg/dL (4-19); BUN/Creat Ratio 22.3 RATIO (10-20); Calcium,Total 9.6 mg/dL (7.6-11.0); Carbon Dioxide 23.4 mmol/L (21.0-32.0); Chloride 104 mmol/L (98-108); Cholesterol 124 mg/dL (<=200); Creatinine, Serum 0.77 mg/dL (0.70-1.20); EST Glomerular Filtration Rate 99 (>60); Globulin 3.1 g/dL (2.2-4.2); Glucose 128 mg/dL (70-99); High Density Lipoprotein 33 mg/dL; Low Density Lipoprotein Calc. 61 mg/dL; Potassium 4.1 mmol/L (3.3-5.1); Protein, Total 7.2 g/dL (5.9-8.4); Sodium Level 140 mmol/L (133-145); Total Bilirubin 0.42 mg/dL (0.00-1.30); Triglycerides 152 mg/dL; Very Low Density Lipoprotein 30 mg/dL (5-40); cholesterol:hdl ratio screen 3.79
[2025-03-11 12:24] LABS: Microalbumin,Random Urine < 12.0 mg/L (NO RANGE EST.); Microalbumin:Creatinine Ratio UNABLE TO CALCULATE mg/g CRE
== END 2025-03-11 23:59 | disposition home or self-care (01) ==
LOC: LAB 09:44
PROVIDERS: PCP Nurse Practitioner Primary Care; Referring Provider Internal Medicine Endocrinology, Diabetes & Metabolism; Visit Provider Internal Medicine Endocrinology, Diabetes & Metabolism
DX: Z12.5 Encounter for screening for malignant neoplasm of prostate (principal); E66.01 Morbid (severe) obesity due to excess calories; Z68.41 Body mass index [BMI] 40.0-44.9, adult; E11.9 Type 2 diabetes mellitus without complications; Z79.4 Long term (current) use of insulin; I10 Essential (primary) hypertension; E55.9 Vitamin D deficiency, unspecified
CPT/HCPCS: 36415; 80053; 80061; 82043; 82306; 82570; 84153; 84443; G0103